=== PATIENT | male | born 1940 | race Caucasian/White ===

== ENCOUNTER 2019-05-08 14:01 | Observation (INO) ==
[2019-05-08] MEDS ORDERED: METOCLOPRAMIDE HCL 5 MG/ML VIAL IV ONE ×2 (14:27→15:32)
[2019-05-08] MEDS ORDERED: NORMAL SALINE 1,000 ML IV ONE (14:27)
[2019-05-08] MEDS ORDERED: diphenhydrAMINE HCL 50 MG/ML VIAL IV ONE ×2 (14:27→15:32)
[2019-05-08 14:41] LABS: Hematocrit 48.6 % (42.0-52.0); Mean Cell Volume 89.8 fl (78-100); Mean Corpuscular Hemoglobin 31.4 pg (27-31); Neutrophil # 7.7 K/mm3 (1.3-6.0); Neutrophil % 86.3 % (42-75.0); Platelet Count 230 K/mm3 (150-450); Red Blood Count 5.41 M/mm3 (4.7-6.0); Red Cell Distribution Width 13.5 % (11.5-14.0); White Blood Count 8.9 K/mm3 (4.0-10.5)
--- NOTE | 2019-05-08 14:59 | ERNOTE ---
Abdominal HPI - General Chief Complaint: Abdominal Pain Time Seen by Provider: 05/08/19 14:17 Source: patient Exam Limitations: no limitations - Immun/Allergies/Home Medications Immunizatons: IMMUNIZATION HX Immunizations Up to Date Yes History of Influenza Vaccine Yes Hx Pneumococcal Vaccination Yes Allergies/Adverse Reactions: Allergies aspirin Allergy (Verified 05/08/19 14:16) gi bleed Penicillins Adverse Reaction (Severe, Verified 05/08/19 14:16) anaphylacti reaction simvastatin Adverse Reaction (Verified 05/08/19 14:16) muscle cramps Home Medications: HOME MEDICATIONS lisinopril 10 mg tablet 10 mg PO DAILY #90 tab 05/12/18 [Last Taken Unknown] - History of Present Illness Narrative: Patient states that yesterday he had diarrhea. While that was relatively painl ess, today he woke up with abdominal cramping with nausea and dry heaves. He rates the pain as a least moderate in severity. Timing: intermittent Quality: moderate Activities at Onset: none Modifying Factors - (Improves): Absent: analgesics Modifying Factors - (Worsens): Absent: analgesics Associated Symptoms: Present: nausea Prior Abdominal Problems: Present: none Review of Systems - Review of Systems Constitutional: Present: See HPI EYE: Present: no symptoms reported ENT: Present: no symptoms reported Respiratory: Present: no symptoms reported Cardiology: Present: no symptoms reported Gastrointestinal/Abdominal: Present: See HPI Genitourinary: Present: no symptoms reported Musculoskeletal: Present: no symptoms reported Skin: Present: no symptoms reported Neurological: Present: no symptoms reported Endocrine: Present: no symptoms reported Hematologic/Lymphatic: Present: no symptoms reported Psych: Present: no symptoms reported Medical History (Last Reviewed 05/08/19 @ 15:24 by Sanjuanita Sanchez RN) Malignant melanoma in situ (Acute) Onset Date: 11/01/18 Dr. Beni Gupta, [facility]. Left cheek. Malignant melanoma in situ ([place] Maligna-type). Osteoarthritis of left knee (Chronic) Knee pain, left (Acute) Onset Date: Unknown Abdominal pain (Acute) Pancreatitis, gallstone (Acute) Gallbladder disease (Acute) Osteoarthritis (Chronic) Bilateral knee. Dizziness (Acute) Hypertensive urgency (Acute) Cholelithiasis (Acute) Hiatal hernia Hyperlipidemia Seasonal allergies Diabetes Hypertension Hypothyroidism Onset Date: ~03/29/17 Biliary obstruction Onset Date: ~2017 Calculus of bile duct without cholangitis or cholecystitis with obstruction Onset Date: ~2017 Malignant melanoma of skin of other and unspecified parts of face Onset Date: ~2012 Right ear. Surgical History: Surgical History (Last Reviewed 05/08/19 @ 15:24 by Sanjuanita Sanchez RN) ho of left arm surgery (Resolved) Onset Date: ~1959 left elbow Cataract Onset Date: ~2010 bilateral History of ERCP Onset Date: 04/13/18 Dr. Ankush Hansen, [facility]. History of melanoma excision Onset Date: 10/24/12 Dr. Mcgrath - excision left ear melanoma w/sentinel node biopsy Family History: Family History (Last Reviewed 05/08/19 @ 15:24 by Sanjuanita Sanchez RN) Daughter Alive and well Daughter , age 38 unknown cause No problems noted. Father Heart disease CHF (congestive heart failure) Mother No problems noted. Son Alive and well Social History: (Last Reviewed 05/08/19 @ 15:25 by Sanjuanita Sanchez RN) Social History: snf: No Marital status: lives independently: Yes household members: spouse current occupational status: retired Highest education level completed: high school graduate Service: No Tobacco: Smoking Status: Never smoker second hand exposure: No Alcohol: alcohol intake: never Substance Use: substance use type: does not use Dietary Habits: caffeine: Yes caffeine comment: current every day Exercise: Physical activity functional status: restricted by assistive d Physical Exam - Physical Exam General Appearance: Present: wd/wn, alert, moderate distress Head Exam: Present: normal inspection, no evidence of injury Eye Exam: Normal inspection: bilateral, PERRL: bilateral Ears, Nose, Throat: Present: normal ENT inspection, H, normal pharynx Neck: Present: normal inspection, nontender Respiratory: Present: no respiratory distress, normal breath sounds, no accessory muscle use, chest nontender, lungs clear Cardiovascular/Chest: Present: regular rate, rhythm, no murmur, normal peripheral pulses Gastrointestinal/Abdominal: Present: normal bowel sounds, soft, no organomegaly, tenderness - Moderate tenderness throughout, distended Rectal Exam: Present: deferred Male Genitals Exam: Present: deferred Back Exam: Present: normal inspection, normal range of motion Extremity Exam: Present: normal inspection, non-tender, no edema, normal range of motion Neurological Exam: Present: alert, oriented, normal mood/affect Skin Exam: Present: normal color, warm/dry Lymphatic Exam: Present: no adenopathy Progress - Results and Orders Patient's Lab Results:: I have reviewed the patient's lab results. - Vital Signs Patient's Vital Signs:: I have reviewed the patient's vital signs. Vital Signs: Vital Signs 05/08/19 14:11 Temperature 36.8 C Pulse Rate 81 Respiratory Rate 12 Blood Pressure 150/96 H O2 Sat by Pulse Oximetry 97 - X-Ray X-Ray #1 X-Ray: abdomen Interpretation: Reviewed by me - CT/Ultrasound CT/Ultrasound Narrative: CT the abdomen pelvis was reviewed by me - Progress/Reassessment Chief Complaint: Abdominal Pain Plan - Plan Plan: Patient be admitted to a medical monitored bed with a surgical consult Departure Clinical Impression: SBO (small bowel obstruction) - Departure Disposition: Still a patient Condition: Fair
[2019-05-08] MEDS ORDERED: DIATRIZOATE MEGLUMINE, SODIUM 30 ML BTL PO ONE (15:07)
[2019-05-08 15:30] LABS: Albumin * 4.1 gm/dl (3.4-5.0); Anion Gap 17.5 mmol/L (6.8-13.8); BUN/Creatinine Ratio 20.1 (9.0-21.6); Bilirubin, Total 0.4 mg/dL (0.0-1.1); CRP 3.2 mg/dL (0.0-0.9); Ca. Corrected For Albumin 8.3 mg/dL (8.4-10.2); Calcium * 8.7 mg/dL (7.9-10.9); Carbon Dioxide 24.2 mmol/L (24-32.6); Magnesium 1.7 mg/dL (1.2-2.8); Potassium 3.7 mmol/L (3.4-4.6)
[2019-05-08 16:27] LABS: Urine Bilirubin Negative (NEGATIVE); Urine Blood 25 /ul (NEGATIVE); Urine Ketone Negative (NEGATIVE); Urine Nitrite Negative (NEGATIVE); Urine Protein Negative (NEGATIVE); Urine Specific Gravity >=1.030 SP.GR. (1.005-1.030); Urine Urobilinogen Normal (NORMAL)
[2019-05-08 16:34] LABS: Urine Appearance Clear (CLEAR); Urine Bacteria None Seen; Urine Color Yellow; Urine RBC 0-5 /hpf (0-5); Urine WBC None Seen /hpf (0-5)
[2019-05-08] MEDS ORDERED: MORPHINE SULFATE 4 MG/ML SYRG IV ONE (16:48)
--- NOTE | 2019-05-08 19:24 | CONS ---
HPI - General Date of Service: 05/08/19 Source: patient, family, RN/MD, RN notes reviewed, old records Exam Limitations: no limitations - History of Present Illness Timing/Duration: 24 hours Modifying Factors - (Worsens): Reports: eating Modifying Factors - (Improves): Reports: rest Associated Symptoms: other - He had nausea vomiting and diarrhea yesterday. No fever or chills Allergies/Adverse Reactions: Allergies aspirin Allergy (Verified 05/08/19 14:16) gi bleed Penicillins Adverse Reaction (Severe, Verified 05/08/19 14:16) anaphylacti reaction simvastatin Adverse Reaction (Verified 05/08/19 14:16) muscle cramps Home Medications: Home Medications Medication Instructions Recorded Last Taken lisinopril 10 mg tablet 10 mg PO DAILY #90 tab 05/12/18 Unknown Review of Systems - Review of Systems Generalized/Overall Review: Present: Fatigue. Absent: Chills, Fever EENTM: Present: No Symptoms Reported Respiratory: Absent: Cough, Shortness of Breath Cardiac: Absent: Chest Pain, Palpitations Abdominal: Present: Abdominal Pain, Other - He had nausea and vomiting yesterday "thought I had the flu". Today he felt his abdomen rumble like he had to move his bowels but not much happened. He did pass some gas today Musculoskeletal: Present: No Symptoms Reported Neurological: Present: No Symptoms Reported Skin: Present: No Symptoms Reported Endocrine: Present: No Symptoms Reported Physical Examination - Exam Vital Signs: Vital Signs - Last Taken Temp 36.8 C 05/08/19 14:11 Pulse 76 05/08/19 19:00 Resp 14 05/08/19 19:00 BP 126/76 05/08/19 19:00 Pulse Ox 95 05/08/19 19:00 O2 Oxygen Delivery Method Room Air Constitutional: Present: Alert, Oriented x3, Cooperative, Elderly, Obese ENT Exam: Present: normal ENT inspection, hearing grossly normal Eye Exam: bilateral eye: normal inspection Neck: Present: full range of motion, normal inspection Respiratory: Present: normal breath sounds, no respiratory distress Cardiovascular/Chest: Present: regular rate, rhythm, no murmur Abdomen: Present: obese, other - Very protuberant tympanitic abdomen. No percussion tenderness. No discrete point or rebound tenderness Extremity: Present: normal range of motion, no pedal edema, no calf tenderness Skin Exam: Present: normal color, warm/dry Neurologic: Present: oven loader II-XII nml as tested, no motor/sensory deficits, other - He is slow to stand with assistance. Somewhat unsteady gait Appearance: Present: appropriate appearance, appropriate insight Eye contact: Present: cooperative, good eye contact, normal speech Thoughts: Present: normal thought pattern - Results and Findings: Lab/Microbiology results last 24 hrs: Abnormal/Pending Laboratory Last 24 HRS 05/08/19 05/08/19 05/08/19 Unknown 14:41 14:41 MCH Immature Gran # (Auto) Neutrophils % Lymphocytes % Neutrophils # Lymphocytes # Chloride 96 L Anion Gap 17.5 H BUN 27 H Est GFR (Non-Af Amer) 54 L D Random Glucose 197 H Lactic Acid, Venous 2.1 H Calcium Adj for Albumin 8.3 L C-Reactive Prot, Quant 3.2 H Lipase 61 L Urine Blood 25 H 05/08/19 14:41 MCH 31.4 H Immature Gran # (Auto) 0.04 H Neutrophils % 86.3 H Lymphocytes % 6.6 L Neutrophils # 7.7 H Lymphocytes # 0.59 L Chloride Anion Gap BUN Est GFR (Non-Af Amer) Random Glucose Lactic Acid, Venous Calcium Adj for Albumin C-Reactive Prot, Quant Lipase Urine Blood CT scan of the abdomen and pelvis and plain abdominal films reviewed and the reports noted - Assessments/Findings (1) SBO (small bowel obstruction) Diagnosis(s): He had an ERCP for common bile duct stones in April 2018. This was followed immediately with a laparoscopic cholecystectomy. This is his only previous abdominal surgery. He does have severe diverticulosis on the CT scan. His last colonoscopy was over 15 years ago. His had "a 24-hour bug" on 05/03/2019. She had profuse vomiting and diarrhea. He became ill with a similar symptoms and that is what he thought he had until he had more discomfort. He had 1500 mL of green fluid out with passage of the NG tube. His abdominal pain is almost gone now. The x-rays and CT are compatible with possible small bowel obstruction. There is no free fluid. His WBC is normal. His only abdominal surgery was laparoscopic cholecystectomy which usually does not produce much in the way of adhesions, although if he had pancreatitis this could contribute. He does have significant diverticular disease which could cause an adhesive band. His 's recent illness may be coincidental. I discussed the situation with him and his . I lesvia diagrams of the abdomen and explained adhesive disease and the possible need for surgery if it does not resolve with nasogastric suction. Would recommend a trial of nasogastric suction with IV fluids. He could have ice chips I will reevaluate the patient in the morning, and discussed the case with Dr. Hernandez Problem: Acute
--- NOTE | 2019-05-08 20:23 | HP ---
Chief Complaint - Chief Complaint Date of Service: 05/08/19 Time of Service: 20:13 Chief Complaint: SBO History of Present Illness: Patient with PMHx of hypertension presented to the ED after having diarrhea and abdominal bloating. Last week, his had "24 hour stomach flu," and he woke yesterday with some diarrhea. Today, he has been unable to pass gas, and his abdomen is bloated and firm. His last BM was yesterday evening. He had la paroscopic cholecystectomy earlier this year. In the ED, imaging found a complete small bowel obstruction. NG tube was placed, which relieved pressure. He denies other symptoms. Medical History (Last Reviewed 05/08/19 @ 19:15 by Tonie Aly RN) Malignant melanoma in situ (Acute) Onset Date: 11/01/18 Dr. Beni Gupta, [facility]. Left cheek. Malignant melanoma in situ ([place] Maligna-type). Osteoarthritis of left knee (Chronic) Knee pain, left (Acute) Onset Date: Unknown Abdominal pain (Acute) Pancreatitis, gallstone (Acute) Gallbladder disease (Acute) Osteoarthritis (Chronic) Bilateral knee. Dizziness (Acute) Hypertensive urgency (Acute) Cholelithiasis (Acute) Hiatal hernia Hyperlipidemia Seasonal allergies Diabetes Hypertension Hypothyroidism Onset Date: ~03/29/17 Biliary obstruction Onset Date: ~2017 Calculus of bile duct without cholangitis or cholecystitis with obstruction Onset Date: ~2017 Malignant melanoma of skin of other and unspecified parts of face Onset Date: ~2012 Right ear. Surgical History: Surgical History (Last Reviewed 05/08/19 @ 19:15 by Tonie Aly RN) ho of left arm surgery (Resolved) Onset Date: ~1959 left elbow Cataract Onset Date: ~2010 bilateral History of ERCP Onset Date: 04/13/18 Dr. Ankush Hansen, [facility]. History of melanoma excision Onset Date: 10/24/12 Dr. Mcgrath - excision left ear melanoma w/sentinel node biopsy Family History: Family History (Last Reviewed 05/08/19 @ 19:15 by Tonie Aly RN) Daughter Alive and well Daughter , age 38 unknown cause No problems noted. Father Heart disease CHF (congestive heart failure) Mother No problems noted. Son Alive and well Social History: (Last Reviewed 05/08/19 @ 19:15 by Tonie Blindt, RN) Social History: group home: No Marital status: lives independently: Yes household members: spouse current occupational status: retired Highest education level completed: high school graduate Service: No Tobacco: Smoking Status: Never smoker second hand exposure: No Alcohol: alcohol intake: never Substance Use: substance use type: does not use Dietary Habits: caffeine: Yes caffeine comment: current every day Exercise: Physical activity functional status: restricted by assistive d Review Of Systems (GEN) - Review of Systems Generalized/Overall Review: Absent: Fever Respiratory: Absent: Cough, Shortness of Breath Cardiac: Absent: Chest Pain, Edema Abdominal: Present: Nausea, Diarrhea, Other - bloating. Absent: Vomiting Genitourinary: Present: No Symptoms Reported Musculoskeletal: Present: No Symptoms Reported Neurological: Present: No Symptoms Reported Skin: Present: No Symptoms Reported Immunizations: IMMUNIZATION HX Immunizations Up to Date Yes History of Influenza Vaccine Yes Hx Pneumococcal Vaccination Yes Allergies/Adverse Reactions: Allergies Allergy/AdvReac Type Severity Reaction Status Date / Time aspirin Allergy gi bleed Verified 05/08/19 14:16 Penicillins AdvReac Severe anaphylacti Verified 05/08/19 14:16 reaction simvastatin AdvReac muscle Verified 05/08/19 14:16 cramps Home Medications: HOME MEDICATIONS lisinopril 10 mg tablet 10 mg PO DAILY #90 tab 05/12/18 [Last Taken 05/07/19 21:00 10] Exam - Exam Vital Signs: Vital Signs - Last Taken Temp 36.5 C 05/08/19 19:15 Pulse 86 05/08/19 19:15 Resp 20 05/08/19 19:15 BP 117/70 05/08/19 19:15 Pulse Ox 94 05/08/19 19:15 Constitutional: Present: Alert, Oriented x3, Cooperative, Elderly ENT Exam: Present: other - NG tube in place Respiratory: Present: normal breath sounds, no respiratory distress Cardiovascular/Chest: Present: regular rate, rhythm Abdomen: Present: firm, distended, high pitched bowel sounds Extremity: Absent: lower extremity edema Neurologic: Present: normal mood/affect Eye contact: Present: cooperative, good eye contact Diagnostic Studies: Abnormal Lab Results 05/08/19 05/08/19 05/08/19 Range/Units 14:41 14:41 14:41 MCH 31.4 H (27-31) pg Immature Gran # (Auto) 0.04 H (0.000-0.0310) K/mm3 Neutrophils % 86.3 H (42-75.0) % Lymphocytes % 6.6 L (20-51) % Neutrophils # 7.7 H (1.3-6.0) K/mm3 Lymphocytes # 0.59 L (1.5-3.5) k/mm3 Chloride 96 L (97-106) mmol/L Anion Gap 17.5 H (6.8-13.8) mmol/L BUN 27 H (6-23) mg/dL Est GFR (Non-Af Amer) 54 L D (60-130) mL/min Random Glucose 197 H (70-110) mg/dL Lactic Acid, Venous 2.1 H (0.4-2.0) mmol/L Calcium Adj for Albumin 8.3 L (8.4-10.2) mg/dL C-Reactive Prot, Quant 3.2 H (0.0-0.9) mg/dL Lipase 61 L (73-393) U/L Urine Blood (NEGATIVE) /ul 05/08/19 Range/Units Unknown MCH (27-31) pg Immature Gran # (Auto) (0.000-0.0310) K/mm3 Neutrophils % (42-75.0) % Lymphocytes % (20-51) % Neutrophils # (1.3-6.0) K/mm3 Lymphocytes # (1.5-3.5) k/mm3 Chloride (97-106) mmol/L Anion Gap (6.8-13.8) mmol/L BUN (6-23) mg/dL Est GFR (Non-Af Amer) (60-130) mL/min Random Glucose (70-110) mg/dL Lactic Acid, Venous (0.4-2.0) mmol/L Calcium Adj for Albumin (8.4-10.2) mg/dL C-Reactive Prot, Quant (0.0-0.9) mg/dL Lipase (73-393) U/L Urine Blood 25 H (NEGATIVE) /ul Laboratory Results WBC 8.9 K/mm3 (4.0-10.5) 05/08/19 14:41 RBC 5.41 M/mm3 (4.7-6.0) 05/08/19 14:41 Hgb 17.0 gm/dL (13.5-18.0) 05/08/19 14:41 Hct 48.6 % (42.0-52.0) 05/08/19 14:41 MCV 89.8 fl (78-100) 05/08/19 14:41 MCH 31.4 pg (27-31) H 05/08/19 14:41 MCHC 35.0 g/dl (32-36) 05/08/19 14:41 RDW 13.5 % (11.5-14.0) 05/08/19 14:41 Plt Count 230 K/mm3 (150-450) 05/08/19 14:41 MPV 10.0 fl (8-11.3) 05/08/19 14:41 Immature Gran % (Auto) 0.40 % (0.001-0.429) 05/08/19 14:41 Immature Gran # (Auto) 0.04 K/mm3 (0.000-0.0310) H 05/08/19 14:41 Neutrophils % 86.3 % (42-75.0) H 05/08/19 14:41 Lymphocytes % 6.6 % (20-51) L 05/08/19 14:41 Monocytes % 6.4 % (0.0-9) 05/08/19 14:41 Eosinophils % 0.1 % (0.0-3.0) 05/08/19 14:41 Basophils % 0.2 % (0.0-1.0) 05/08/19 14:41 Nucleated RBC % 0.0 k/mm3 (0-1) 05/08/19 14:41 Neutrophils # 7.7 K/mm3 (1.3-6.0) H 05/08/19 14:41 Lymphocytes # 0.59 k/mm3 (1.5-3.5) L 05/08/19 14:41 Monocytes # 0.6 k/mm3 (0.0-1.0) 05/08/19 14:41 Eosinophils # 0.0 k/mm3 (0.0-0.7) 05/08/19 14:41 Absolute Basophils 0.0 k/mm3 (0.0-0.1) 05/08/19 14:41 Sodium 134 mmol/L (132-142) 05/08/19 14:41 Plasma Sodium 136 mmol/L (130-142) 05/08/19 14:41 Potassium 3.7 mmol/L (3.4-4.6) 05/08/19 14:41 Chloride 96 mmol/L (97-106) L 05/08/19 14:41 Carbon Dioxide 24.2 mmol/L (24-32.6) 05/08/19 14:41 Anion Gap 17.5 mmol/L (6.8-13.8) H 05/08/19 14:41 BUN 27 mg/dL (6-23) H 05/08/19 14:41 Creatinine 1.34 mg/dL (0.4-1.4) D 05/08/19 14:41 Est GFR (Non-Af Amer) 54 mL/min (60-130) L D 05/08/19 14:41 BUN/Creatinine Ratio 20.1 (9.0-21.6) 05/08/19 14:41 Random Glucose 197 mg/dL (70-110) H 05/08/19 14:41 Lactic Acid, Venous 2.0 mmol/L (0.4-2.0) 05/08/19 17:45 Calcium 8.7 mg/dL (7.9-10.9) 05/08/19 14:41 Calcium Adj for Albumin 8.3 mg/dL (8.4-10.2) L 05/08/19 14:41 Magnesium 1.7 mg/dL (1.2-2.8) 05/08/19 14:41 Total Bilirubin 0.4 mg/dL (0.0-1.1) 05/08/19 14:41 AST 25 U/L (0-48) 05/08/19 14:41 ALT 35 U/L (19-67) 05/08/19 14:41 Alkaline Phosphatase 60 U/L (50-170) 05/08/19 14:41 C-Reactive Prot, Quant 3.2 mg/dL (0.0-0.9) H 05/08/19 14:41 Total Protein 8.0 gm/dL (6.2-8.2) 05/08/19 14:41 Albumin 4.1 gm/dl (3.4-5.0) 05/08/19 14:41 Lipase 61 U/L (73-393) L 05/08/19 14:41 Urine Color Yellow 05/08/19 Unknown Urine Appearance Clear (CLEAR) 05/08/19 Unknown Urine pH 6.0 pH (5.0-7.0) 05/08/19 Unknown Ur Specific [place] >=1.030 SP.GR. (1.005-1.030) 05/08/19 Unknown Urine Protein Negative mg/dL (NEGATIVE) 05/08/19 Unknown Urine Glucose (UA) Negative mg/dL (NEGATIVE) 05/08/19 Unknown Urine Ketones Negative mg/dL (NEGATIVE) 05/08/19 Unknown Urine Blood 25 /ul (NEGATIVE) H 05/08/19 Unknown Urine Nitrate Negative (NEGATIVE) 05/08/19 Unknown Urine Bilirubin Negative mg/dl (NEGATIVE) 05/08/19 Unknown Urine Urobilinogen Normal EU/dl (NORMAL) 05/08/19 Unknown Ur Leukocyte Esterase Negative /ul (NEGATIVE) 05/08/19 Unknown Urine RBC 0-5 /hpf (0-5) 05/08/19 Unknown Urine WBC None seen /hpf (0-5) 05/08/19 Unknown Ur Epithelial Cells 0-5 /hpf (0-5) 05/08/19 Unknown Urine Bacteria None seen (NONE) 05/08/19 Unknown Urine Culture Comments No culture indicated 05/08/19 Unknown Assessment/Plan - Assessment/Plan (1) SBO (small bowel obstruction) Assessment: NG tube has been placed, and Dr. Stahl has been consulted. Green liquid in canister, and Mr. Rosales reports this is the second canister of liquid that's been removed since the tube was placed. SBO may resolve with the NG tube, and will monitor for symptom resolution over the next couple of days. IV fluids have been ordered. Anticipate he will remain hospitalized for at least 2 midnights. No significant lab abnormalities. He has a history of laparoscopic cholecystectomy earlier this year, but that is his only prior surgery. Problem: Acute (2) Hypertension Assessment: BP is a bit low this evening, so will hold his home 10 mg lisinopril. Will restart if his BP remains greater than 140 consistently. Problem: Chronic
[2019-05-08] MEDS: DEXTROSE 5%-0.5 NORMAL SALINE 1,000 ML IV PRN (20:42)
[2019-05-09] MEDS: DEXTROSE 5%-0.5 NORMAL SALINE 1,000 ML IV PRN (04:53)
--- NOTE | 2019-05-09 07:53 | PN ---
Subjective - Date and Time Seen Date: 05/09/19 Time: 07:52 Subjective Narrative: Patient reports feeling better. He had a BM this morning. He feels like his bloating is resolved. Objective - Review of Systems Generalized/Overall Review: Denies: Fever Respiratory: Denies: Cough, Shortness of Breath Cardiac: Denies: Chest Pain, Edema Abdominal: Denies: Vomiting Genitourinary Symptoms: Reports: No Symptoms Reported Musculoskeletal Complaints: Reports: No Symptoms Reported - Vitals Vitals: Last Vital Signs Temp 36.5 C 05/09/19 06:19 Pulse 71 05/09/19 06:19 Resp 18 05/09/19 06:19 BP 136/76 05/09/19 06:19 Pulse Ox 92 L 05/09/19 06:19 - Abnormal Lab Findings Abnormal Lab Findings: Abnormal Lab Results 05/08/19 05/08/19 05/08/19 Range/Units 14:41 14:41 14:41 MCH 31.4 H (27-31) pg Immature Gran # (Auto) 0.04 H (0.000-0.0310) K/mm3 Neutrophils % 86.3 H (42-75.0) % Lymphocytes % 6.6 L (20-51) % Neutrophils # 7.7 H (1.3-6.0) K/mm3 Lymphocytes # 0.59 L (1.5-3.5) k/mm3 Chloride 96 L (97-106) mmol/L Anion Gap 17.5 H (6.8-13.8) mmol/L BUN 27 H (6-23) mg/dL Est GFR (Non-Af Amer) 54 L D (60-130) mL/min Random Glucose 197 H (70-110) mg/dL Lactic Acid, Venous 2.1 H (0.4-2.0) mmol/L Calcium Adj for Albumin 8.3 L (8.4-10.2) mg/dL C-Reactive Prot, Quant 3.2 H (0.0-0.9) mg/dL Lipase 61 L (73-393) U/L Urine Blood (NEGATIVE) /ul 05/08/19 Range/Units Unknown MCH (27-31) pg Immature Gran # (Auto) (0.000-0.0310) K/mm3 Neutrophils % (42-75.0) % Lymphocytes % (20-51) % Neutrophils # (1.3-6.0) K/mm3 Lymphocytes # (1.5-3.5) k/mm3 Chloride (97-106) mmol/L Anion Gap (6.8-13.8) mmol/L BUN (6-23) mg/dL Est GFR (Non-Af Amer) (60-130) mL/min Random Glucose (70-110) mg/dL Lactic Acid, Venous (0.4-2.0) mmol/L Calcium Adj for Albumin (8.4-10.2) mg/dL C-Reactive Prot, Quant (0.0-0.9) mg/dL Lipase (73-393) U/L Urine Blood 25 H (NEGATIVE) /ul - Exam Constitutional: Present: Alert, Cooperative, No distress ENT Exam: Present: other - NT tube in place Respiratory: Present: lungs clear, normal breath sounds Cardiovascular/Chest: Present: regular rate, rhythm Abdomen: Present: nontender, obese, other - dark green drainage from NG in container Extremity: Absent: lower extremity edema Neurologic: Present: normal mood/affect Assessment/Plan - Problems/Diagnosis (1) SBO (small bowel obstruction) Problem: Acute Narrative: He reports his bloating has resolved. His abdomen appears distended, but he states it is his baseline. He had a bowel movement this morning. No current abdominal pain. Anticipate we will be able to clamp his NG tube and start clear liquids today, but will defer this to Dr. Stahl. (2) Hypertension Problem: Chronic Narrative: His BP was 110's/70's yesterday evening, and home lisinopril held. This morning's BP is 120's-130's/70's-80's. Will restart his lisinopril if/when his BP is consistently greater than 140's/90's.
[2019-05-09 08:15] LABS: Hematocrit 47.9 % (42.0-52.0); Hemoglobin 16.7 gm/dL (13.5-18.0); Mean Cell Volume 90.4 fl (78-100); Mean Corpuscular Hemoglobin 31.5 pg (27-31); Mean Corpuscular Hgb Conc 34.9 g/dl (32-36); Neutrophil # 7.8 K/mm3 (1.3-6.0); Platelet Count 222 K/mm3 (150-450); Red Cell Distribution Width 13.5 % (11.5-14.0); White Blood Count 10.2 K/mm3 (4.0-10.5)
[2019-05-09 08:23] LABS: Anion Gap 14.3 mmol/L (6.8-13.8); BUN/Creatinine Ratio 19.6 (9.0-21.6); Calcium * 8.7 mg/dL (7.9-10.9); Carbon Dioxide 26.1 mmol/L (24-32.6); Estimated Creat Clear 60.5; Potassium 3.4 mmol/L (3.4-4.6)
--- NOTE | 2019-05-09 11:33 | PN ---
Subjective - Date and Time Seen Date: 05/09/19 Time: 11:26 Subjective Narrative: He reports he has passed a lot of gas and had a bowel movement. His original abdominal discomfort has resolved. Objective Objective Narrative: His vital signs have remained normal. His oxygen saturations have been in the low 90s. - Review of Systems Generalized/Overall Review: Denies: Chills, Fever EENTM: Reports: Other - Discomfort from the nasogastric tube and some postnasal drainage Respiratory: Denies: Cough, Shortness of Breath Cardiac: Denies: Chest Pain Abdominal: Reports: Other - His presenting discomfort has resolved. He feels less distended, is passing gas and had a bowel movement Genitourinary Symptoms: Reports: No Symptoms Reported Musculoskeletal Complaints: Reports: No Symptoms Reported Neurological: Reports: No Symptoms Reported Skin: Reports: No Symptoms Reported - Vitals Vitals: Last Vital Signs Temp 36.7 C 05/09/19 10:00 Pulse 95 05/09/19 10:00 Resp 18 05/09/19 10:00 BP 136/82 05/09/19 10:00 Pulse Ox 96 05/09/19 10:00 - Abnormal Lab Findings Abnormal Lab Findings: Abnormal Lab Results 05/08/19 05/08/19 05/08/19 Range/Units 14:41 14:41 14:41 MCH 31.4 H (27-31) pg Immature Gran % (Auto) (0.001-0.429) % Immature Gran # (Auto) 0.04 H (0.000-0.0310) K/mm3 Neutrophils % 86.3 H (42-75.0) % Lymphocytes % 6.6 L (20-51) % Monocytes % (0.0-9) % Neutrophils # 7.7 H (1.3-6.0) K/mm3 Lymphocytes # 0.59 L (1.5-3.5) k/mm3 Monocytes # (0.0-1.0) k/mm3 Chloride 96 L (97-106) mmol/L Anion Gap 17.5 H (6.8-13.8) mmol/L BUN 27 H (6-23) mg/dL Est GFR (Non-Af Amer) 54 L D (60-130) mL/min Random Glucose 197 H (70-110) mg/dL Lactic Acid, Venous 2.1 H (0.4-2.0) mmol/L Calcium Adj for Albumin 8.3 L (8.4-10.2) mg/dL C-Reactive Prot, Quant 3.2 H (0.0-0.9) mg/dL Lipase 61 L (73-393) U/L Urine Blood (NEGATIVE) /ul 05/08/19 05/09/19 05/09/19 Range/Units Unknown 08:12 08:12 MCH 31.5 H (27-31) pg Immature Gran % (Auto) 0.60 H (0.001-0.429) % Immature Gran # (Auto) 0.06 H (0.000-0.0310) K/mm3 Neutrophils % 76.0 H (42-75.0) % Lymphocytes % 11.0 L (20-51) % Monocytes % 11.8 H (0.0-9) % Neutrophils # 7.8 H (1.3-6.0) K/mm3 Lymphocytes # 1.13 L (1.5-3.5) k/mm3 Monocytes # 1.2 H (0.0-1.0) k/mm3 Chloride (97-106) mmol/L Anion Gap 14.3 H (6.8-13.8) mmol/L BUN (6-23) mg/dL Est GFR (Non-Af Amer) (60-130) mL/min Random Glucose 179 H (70-110) mg/dL Lactic Acid, Venous (0.4-2.0) mmol/L Calcium Adj for Albumin (8.4-10.2) mg/dL C-Reactive Prot, Quant (0.0-0.9) mg/dL Lipase (73-393) U/L Urine Blood 25 H (NEGATIVE) /ul - EKG/Xray Findings XRAY: abdomen - No acute process, there is contrast in the colon. There is less small bowel distention but still some loops in the left upper quadrant Interpretation: Reviewed by me - Exam Constitutional: Present: Alert, Oriented x3, Cooperative, No distress, Obese ENT Exam: Present: normal ENT inspection Neck: Present: normal inspection Respiratory: Present: no respiratory distress Cardiovascular/Chest: Present: regular rate, rhythm Abdomen: Present: other - He is still somewhat distended but states that this is "his baseline" he has no discrete point tenderness per his report /Rectal: Present: Exam deferred Extremity: Present: no pedal edema, no calf tenderness Skin Exam: Present: normal color 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 His white blood cell count has remained normal. His electrolytes are normal. There is contrast in the colon indicating he does not have a complete obstruction, although there still are some distended loops of small bowel Will trial clamp the nasogastric tube and allow clear liquids--return to suction if not tolerated. Encourage ambulation. Continue IV fluids until p.o. intake adequate. Will continue nasal O2 and encourage pulmonary toilet Will reassess the patient later today. - Problems/Diagnosis (1) SBO (small bowel obstruction) Problem: Acute
--- NOTE | 2019-05-09 20:47 | PN ---
Dictated Progress Note - Date and Time Seen: Date: 05/09/19 Time: 20:46 - Progress Note Narrative: Vital Signs - Last Taken Temp 36.8 C 05/09/19 19:28 Pulse 74 05/09/19 19:28 Resp 18 05/09/19 19:28 BP 117/74 05/09/19 19:28 Pulse Ox 91 L 05/09/19 19:28 Abnormal/Pending Laboratory Last 24 HRS 05/09/19 05/09/19 08:12 08:12 MCH 31.5 H Immature Gran % (Auto) 0.60 H Immature Gran # (Auto) 0.06 H Neutrophils % 76.0 H Lymphocytes % 11.0 L Monocytes % 11.8 H Neutrophils # 7.8 H Lymphocytes # 1.13 L Monocytes # 1.2 H Anion Gap 14.3 H Random Glucose 179 H He has tolerated clear liquids all day with the NG tube clamped. He has passed a large amount of gas and had a bowel movement. He states his abdomen "feels back to normal". He denies any abdominal pain. Will discontinue his nasogastric tube and advance diet in the morning
[2019-05-10] MEDS ORDERED: ENOXAPARIN SODIUM 60 MG/0.6 ML SYRG SC SCH ×2 (05:15→06:00)
[2019-05-10] MEDS ORDERED: ENOXAPARIN SODIUM 100 MG/ML SYRG SC ONE (05:47)
--- NOTE | 2019-05-10 10:01 | PN ---
Subjective - Date and Time Seen Date: 05/10/19 Time: 09:57 Subjective Narrative: He had no nausea or vomiting last night. He tolerated regular diet this morning. He can feel his abdomen grumble. He states his belly is "back to normal". He passed gas and had a small bowel movement He was noted to be in asymptomatic atrial fibrillation last night, however converted to regular rhythm this morning We will see how he tolerates a regular diet today. The etiology of the bowel distention is unclear, however it appears to have resolved. A small bowel follow-through could be obtained as an outpatient, however may not add much information if he continues to improve clinically. Objective - Review of Systems EENTM: Reports: No Symptoms Reported Respiratory: Denies: Cough, Shortness of Breath Cardiac: Reports: Other - he did not notice A-fib. Denies: Chest Pain Abdominal: Denies: Nausea, Vomiting, Abdominal Pain Neurological: Reports: No Symptoms Reported Skin: Reports: No Symptoms Reported Endocrine: Reports: No Symptoms Reported - Vitals Vitals: Last Vital Signs Temp 36.6 C 05/10/19 06:39 Pulse 109 H 05/10/19 06:39 Resp 16 05/10/19 06:39 BP 108/74 05/10/19 06:39 Pulse Ox 91 L 05/10/19 06:39 - Exam Constitutional: Present: Alert, Oriented x3, Cooperative, No distress ENT Exam: Present: normal ENT inspection Neck: Present: normal inspection Respiratory: Present: no respiratory distress Abdomen: Present: other - protuberant but soft and denies pain or tnderness /Rectal: Present: Exam deferred Extremity: Present: no pedal edema Skin Exam: Present: warm/dry 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 The etiology of the bowel distention is unclear, however it appears to have resolved. A small bowel follow-through could be obtained as an outpatient, however may not add much information if he continues to improve clinically.
--- NOTE | 2019-05-10 12:21 | DS ---
(1) SBO (small bowel obstruction) Problem: Resolved (2) Atrial fibrillation Problem: Resolved Qualifiers: Atrial fibrillation type: paroxysmal Qualified Code(s): I48.0 - Paroxysmal atrial fibrillation Date of Discharge:: 05/10/19 Hospital Course: Oz is an 79 yo male that was admitted for small bowel obstruction. He was given an NG tube and made NPO. Gradually he began having flatus and bowel movement and became less bloated. He had his NG clamped and was started on clear liquid diet. He continued to do well and felt back to his baseline. NG tube was removed and he was advanced to regular diet. He continued to do well. Early this morning he had an episode of asymptomatic atrial fibrillation which spontaneously converted back to normal sinus rhythm. He does not have a history of atrial fibrillation. This episode was caught on telemetry and when asked about having any symptoms he denied any changes. Since returning to normal sinus rhythm he has remained there and continues to feel well. He would like to go home and having normal vitals and having normal bowel movements he is ok to be discharged. He will follow up with me in clinic and he would like to follow up with Dr. Morocho for cardiology in regards to this atrial fibrillation episode. I will order an echocardiogram to be done as an outpatient procedure. He has reported intolerance to aspirin, so I am cautious about starting any anticoagulation at this time with one brief asymptomatic episode. His rate is well controlled. Procedures Performed: see notes below List Procedures: NG Tube placed Results and Findings: Lab Pending Results 05/08/19 14:41: WBC 8.9, RBC 5.41, Hgb 17.0, Hct 48.6, MCV 89.8, MCH 31.4 H, MCHC 35.0, RDW 13.5, Plt Count 230, MPV 10.0, Immature Gran % (Auto) 0.40, Immature Gran # (Auto) 0.04 H, Neutrophils % 86.3 H, Lymphocytes % 6.6 L, Monocytes % 6.4, Eosinophils % 0.1, Basophils % 0.2, Nucleated RBC % 0.0, Neutrophils # 7.7 H, Lymphocytes # 0.59 L, Monocytes # 0.6, Eosinophils # 0.0, Absolute Basophils 0.0 05/08/19 14:41: Sodium 134, Plasma Sodium 136, Potassium 3.7, Chloride 96 L, Carbon Dioxide 24.2, Anion Gap 17.5 H, BUN 27 H, Creatinine 1.34 D, Est GFR (Non-Af Amer) 54 L D, BUN/Creatinine Ratio 20.1, Random Glucose 197 H, Calcium 8.7, Calcium Adj for Albumin 8.3 L, Magnesium 1.7, Total Bilirubin 0.4, AST 25, ALT 35, Alkaline Phosphatase 60, C-Reactive Prot, Quant 3.2 H, Total Protein 8.0, Albumin 4.1, Lipase 61 L 05/08/19 14:41: Lactic Acid, Venous 2.1 H 05/08/19 17:45: Lactic Acid, Venous 2.0 05/08/19 : Urine Color Yellow, Urine Appearance Clear, Urine pH 6.0, Ur Specific [place] >=1.030, Urine Protein Negative, Urine Glucose (UA) Negative, Urine Ketones Negative, Urine Blood 25 H, Urine Nitrate Negative, Urine Bilirubin Negative, Urine Urobilinogen Normal, Ur Leukocyte Esterase Negative, Urine RBC 0-5, Urine WBC None seen, Ur Epithelial Cells 0-5, Urine Bacteria None seen, Urine Culture Comments No culture indicated 05/09/19 08:12: WBC 10.2, RBC 5.30, Hgb 16.7, Hct 47.9, MCV 90.4, MCH 31.5 H, MCHC 34.9, RDW 13.5, Plt Count 222, MPV 10.0, Immature Gran % (Auto) 0.60 H, Immature Gran # (Auto) 0.06 H, Neutrophils % 76.0 H, Lymphocytes % 11.0 L, Monocytes % 11.8 H, Eosinophils % 0.4, Basophils % 0.2, Nucleated RBC % 0.0, Neutrophils # 7.8 H, Lymphocytes # 1.13 L, Monocytes # 1.2 H, Eosinophils # 0.0, Absolute Basophils 0.0 05/09/19 08:12: Sodium 135, Plasma Sodium 136, Potassium 3.4, Chloride 98, Carbon Dioxide 26.1, Anion Gap 14.3 H, BUN 20, Creatinine 1.02, Est GFR (Non-Af Amer) 75 D, BUN/Creatinine Ratio 19.6, Random Glucose 179 H, Calcium 8.7 Discharge Location: Home Disposition: Home self-care Condition: Good Discharge Activity: Activity as tolerated Discharge Diet: General/regular food Referrals: Tk Durant DO [Primary Care Provider] - One Week Batool Morocho MD [Associate] - (Next available) Problem Oriented Discharge Instructions to Patient/Family: Small Bowel Obstruction, [id number], Atrial Fibrillation, [id number] Complete Home Medications List: Complete Home Medication List: lisinopril 10 mg tablet 10 mg PO DAILY #90 tab 05/12/18 Amb Orders for Discharge: US Echocardiogram Complete * Time Frame: 1 Week, Facility: [facility], Location: Radiology
[2019-05-10 14:44] VITALS: BP 114/81
[2019-05-10] MEDS ORDERED: ENOXAPARIN SODIUM 30 MG, ENOXAPARIN SODIUM 80 MG SC SCH ×2 (18:00)
== END 2019-05-10 13:20 | disposition home or self-care (01) ==
LOC: MS 14:01 → ER 14:01 → MS 19:00
PROVIDERS: ADMIT Family Medicine; ATTEND Family Medicine
CPT/HCPCS: 36415; 71010; 71020; 71045; 71046; 74019; 74020; 74177; 80048; 80053; 81001; 83605; 83690; 83735; 85025; 86140; 93005; 96365; 96366; 96372; 96375; 99285; G0378; Q9963; Q9967